=== PATIENT | male | born 1995 | race Caucasian/White ===

== ENCOUNTER 2021-12-20 12:06 | Outpatient (CLI) | payer OTHER, SELFPAY ==
--- NOTE | ~2021-12-20 | XR_ITS ---
EXAMINATION: XR foot RT min 3V DATE: 12/20/2021 12:34 INDICATION: Right foot pain TECHNIQUE: Dorsoplantar, lateral, and 2 oblique views of the right foot were obtained. COMPARISON: None. FINDINGS: There is no fracture, dislocation, or subluxation. The bones, soft tissues, and joint space s are normal. IMPRESSION: 1. No acute osseous abnormality. Reviewed, dictated and finalized at location F.
== END 2021-12-20 12:07 | disposition home or self-care (01) ==
PROVIDERS: PCP Nurse Practitioner Family; Visit Provider Nurse Practitioner Family
DX: M79.671 Pain in right foot (principal)
CPT/HCPCS: 73630

== ENCOUNTER 2025-02-09 15:57 | Emergency (ER) | payer OTHER, SELFPAY ==
[2025-02-09 16:26] VITALS: BP 169/93; PULSE 101; RESP 18; TEMP 36.7; O2SAT 99
--- NOTE | 2025-02-09 16:53 | ED.EAR ---
HPI - Ear Problem General Chief complaint: Ear Stated complaint: LT ear discharge Time Seen by Provider: 02/09/25 16:40 Source: patient and RN notes reviewed Mode of arrival: ambulatory Limitations: no limitations History of Present Illness HPI Narrative: 29-year-old male presents Express Care complaining of left ear fullness, pain, and discharge for proximally 3 days. Patient use [id number] ear drops for the pain in the pain is resolved. Patient denies any other upper respiratory symptoms, fevers, cough, body aches, nausea, vomiting, diarrhea, dizziness, or tinnitus. Patient said today he noticed discharge from his ear. Patient is unsure what the discharge look like the report of felt wet and oily. Patient denies any recent swimming. Related Data Home Medications ?Medication ?Instructions ?Recorded ?Confirmed ?Last Taken ?Type No Home Medications 02/09/25 02/09/25 Unknown History Allergies Allergy/AdvReac Type Severity Reaction Status Date / Time No Known Allergies Allergy Verified 02/09/25 16:33 Review of Systems Review of Systems: CONSTITUTIONAL: Denies fever, chills, body aches, or sweats. EYES: Denies visual changes, redness, or discharge. ENT: Denies rhinorrhea, congestion, sore throat, tinnitus. Positive for otalgia and otorrhea. CARDIOVASCULAR: Denies chest pain, palpitations, dizziness, or edema. RESPIRATORY: Denies cough or dyspnea. GASTROINTESTINAL: Denies abdominal pain, nausea, vomiting, or diarrhea. GENITOURINARY: Denies dysuria or hematuria. SKIN: Denies rash or itching. MUSCULOSKELETAL: Denies back pain, joint pain, or myalgia. NEUROLOGIC: Denies headache, numbness, or weakness. PSYCHIATRIC: Denies anxiety or depression. All other systems reviewed are negative, except as documented in HPI. PMFSH Comments At the time of my signature, I reviewed and agree with the nursing past medical, surgical, social, and family history. There is no relevant family history pertinent to the patient complaint. Exam Narrative: GENERAL: This is a well-nourished, well-developed adult, in no apparent distress. They are non ill-appearing, nontoxic appearing. HEAD: normocephalic, atraumatic. EYES: Sclera clear/white. Conjunctiva normal. Vision is grossly intact. Extraocular movements intact EARS: External ears normal, auditory canals clear and without drainage, TMs normal without perforation. Hearing grossly intact. NOSE: External nose normal with no obvious nasal discharge, nasal turbinates without redness, no rhinorrhea. THROAT: Mucous membranes moist, posterior pharynx clear, without erythema or swelling. Uvula midline. NECK: Neck supple, non-tender without lymphadenopathy, masses or thyromegaly. CARDIOVASCULAR: Regular rate and rhythm without murmurs, gallops, or rubs. RESPIRATORY: Clear to auscultation. Breath sounds equal bilaterally. No wheezes, rales, or rhonchi. SKIN: warm, Dry, intact with no suspicious lesions or rash, good texture and turgor. NEURO: awake, alert, and oriented to person, place and time. There were no obvious focal neurologic abnormalities. EXTREMITIES: No joint tenderness, effusion, or edema noted. Course Course Emergency Course: Portions of this record may have been created with voice recognition software Level of Care: Express Care Visit Vital Signs Vital signs: Vital Signs Temperature 98.0 F 02/09/25 16:26 Pulse Rate 101 H 02/09/25 16:26 Respiratory Rate 18 02/09/25 16:26 Blood Pressure 169/93 H 02/09/25 16:26 Pulse Oximetry 99 02/09/25 16:26 Oxygen Delivery Room Air 02/09/25 16:26 Temperature 98.0 F 02/09/25 16:26 Pulse Rate 101 H 02/09/25 16:26 Respiratory Rate 18 02/09/25 16:26 Blood Pressure 169/93 H 02/09/25 16:26 Pulse Oximetry 99 02/09/25 16:26 Oxygen Delivery Room Air 02/09/25 16:26 Reviewed Medical Decision Making MDM Narrative Medical decision making narrative: No evidence of infection in patient's left ear. Otorrhea might have been earwax based off patient description. However patient did not look at the discharge from his left ear. Discussed physical exam findings. Advised supportive measures and signs/symptoms to go to the ER. Pt is appropriate for outpt treatment and f/u. Differential Diagnosis Differential Diagnosis: Otitis media, otitis externa, or excessive cerumen Vital Signs Vital Signs: Vital Signs Temperature 98.0 F 02/09/25 16:26 Pulse Rate 101 H 02/09/25 16:26 Respiratory Rate 18 02/09/25 16:26 Blood Pressure 169/93 H 02/09/25 16:26 Pulse Oximetry 99 02/09/25 16:26 Oxygen Delivery Room Air 02/09/25 16:26 Temperature 98.0 F 02/09/25 16:26 Pulse Rate 101 H 02/09/25 16:26 Respiratory Rate 18 02/09/25 16:26 Blood Pressure 169/93 H 02/09/25 16:26 Pulse Oximetry 99 02/09/25 16:26 Oxygen Delivery Room Air 02/09/25 16:26 Critical Care Time Critical Care Time Critical Care Time: No Discharge Plan Discharge Clinical Impression: Otorrhea Patient Disposition: Home Condition: Stable Instructions: Earache (ED) Additional Instructions: There is no evidence of infection or discharge in your left ear. There is no fluid behind her left ear. Please follow-up with PCP in 3-5 days. You may use [id number] ear drops for pain as directed. Contact your PCP or return to urgent care if you develop green or yellow discharge from ear, fevers, ear pain. Please go to the ER if you develop dizziness, redness and swelling behind her ear, or any other serious concerns. Patient Language: [place] Prescriptions: No Action No Home Medications Follow-up/Referrals: PHYSICIAN,AUTOMOTIVE WORKER FOREMAN [Primary Care Provider] - Stand Alone Forms: Work/School Release IP Time of Disposition: 16:52
--- OUTSIDE RECORDS SUMMARY | 2025-02-09 17:03 | XMS_ITS | Clinical Summary ---
Author Organization [address] Address [address] [place] [id number] Care Team Providers Care Burial Vault Deliverer And Installer Name Role Phone No, Physician Primary Care Provider [phone] Allergies No known active allergies Medications No known medications Active Problems No known active problems Social History Tobacco Use Types Packs/Day Years Used Date Smoking Tobacco: Never Assessed Sex and Gender Information Value Date Recorded Sex Assigned at Not on file Legal Sex Male 1:56 PM TECHNICAL SUPPORT ENGINEER Gender Identity Not on file Sexual Orientation Not on file Obstetrics History Last Filed Vital Signs Vital Sign Reading Time Taken Comments Blood Pressure 140/100 09/01/2021 4:14 PM TECHNICAL SUPPORT ENGINEER Pulse 100 09/01/2021 4:14 PM TECHNICAL SUPPORT ENGINEER Temperature 37 C (98.6 F) 09/01/2021 4:14 PM TECHNICAL SUPPORT ENGINEER Respiratory Rate 16 09/01/2021 4:14 PM TECHNICAL SUPPORT ENGINEER Oxygen Saturation 97% 09/01/2021 4:14 PM TECHNICAL SUPPORT ENGINEER Inhaled Oxygen Concentration - - Weight 90.7 kg (200 lb) 09/01/2021 4:14 PM TECHNICAL SUPPORT ENGINEER Height - - Body Mass Index - - Plan of Treatment Not on file Insurance [facility] [employer] [facility] HMO/PPO Address: [facility] [id number] [place] [address] Care Teams Burial Vault Deliverer And Installer Relationship Specialty Start Date End Date No, Physician PCP - General 09/01/21
--- OUTSIDE RECORDS SUMMARY | 2025-02-09 17:03 | XMS_ITS | Referral Summary ---
Author Organization [address] Address [address] [place] [id number] Care Team Providers Care Director Of Intercollegiate Athletics Name Role Phone No, Physician Primary Care Provider [phone] Allergies No known active allergies Medications No known medications Active Problems No known active problems Social History Tobacco Use Types Packs/Day Years Used Date Smoking Tobacco: Never Assessed Sex and Gender Information Value Date Recorded Sex Assigned at Not on file Legal Sex Male 1:56 PM DRUM FILLER Gender Identity Not on file Sexual Orientation Not on file Last Filed Vital Signs Vital Sign Reading Time Taken Comments Blood Pressure 140/100 09/01/2021 4:14 PM DRUM FILLER Pulse 100 09/01/2021 4:14 PM DRUM FILLER Temperature 37 C (98.6 F) 09/01/2021 4:14 PM DRUM FILLER Respiratory Rate 16 09/01/2021 4:14 PM DRUM FILLER Oxygen Saturation 97% 09/01/2021 4:14 PM DRUM FILLER Inhaled Oxygen Concentration - - Weight 90.7 kg (200 lb) 09/01/2021 4:14 PM DRUM FILLER Height - - Body Mass Index - - Plan of Treatment Not on file Insurance [facility] [employer] [facility]PPO Address: [phone] [place] [address] Care Teams Director Of Intercollegiate Athletics Relationship Specialty Start Date End Date No, Physician PCP - General 09/01/21
== END 2025-02-09 16:55 | disposition home or self-care (01) ==
DX: H92.12 Otorrhea, left ear (principal)
CPT/HCPCS: 99202; G0463